=== PATIENT | female | born 1995 | race Caucasian/White ===

== ENCOUNTER → 2016-09-20 | Day surgery (SDC) | payer BC ==
[~2016-09-20] MED LIST: ACETAMINOPHEN/HYDROcodone 325 MG/7.5 MG TAB ONE; BUPIVACAINE HCL PF 0.25% 30 ML VIAL ONE; CALNTAB; IBUP-232 PO; KETOROLAC TROMETHAMINE 30 MG/ML (IVP) VIAL IV PUSH ONE; LACTATED RINGER'S 1,000 ML BAG IV ONE; LACTATED RINGER'S 1000 ML INJ 1,000 ML ONE; MEPERIDINE HCL 25 MG/ML VIAL ONE; MIDAZOLAM HCL 2 MG/2 ML VIAL ONE; ONDANSETRON HCL 4 MG/2 ML VIAL IV PUSH ONE; PROPOFOL 200 MG/20 ML AMP IV ONE; TYLE3 PO; Z.0.NO CURRENT MEDS; ceFAZolin INJ 1,000 MG VIAL ONE
--- NOTE | 2016-09-20 17:53 | MP ---
cc: JAH IRVIN DATE OF SURGERY 09/20/16 PREOPERATIVE DIAGNOSIS Right ovarian dermoid cyst. PROCEDURE Laparoscopic ovarian cystectomy, removal of dermoid cyst, incidental ablation of pelvic endometriosis minimal stage POSTOPERATIVE DIAGNOSIS Laparoscopic ovarian cystectomy, removal of dermoid cyst, incidental ablation of pelvic endometriosis minimal stage SURGEON Renay Irvin MD ANESTHESIA General endotracheal intubation ESTIMATED BLOOD LOSS None. DRAINS None OPERATIVE FINDINGS The patient had a 4 cm solitary dermoid of the right ovary. The patient also had small endometrial implants over the left uterosacral ligament. Otherwise, no other specific abnormalities were present during the endoscopic portion of the exam. INDICATION FOR PROCEDURE The patient had recent which demonstrated a 4-5 cm solid ovarian mass of the right ovary which was persistent consistent with a dermoid. Recommendation was to proceed with laparoscopic exam and potential ovarian cystectomy. The patient received Ancef 1 gram prophylactically. DESCRIPTION OF PROCEDURE The patient was taken to operating room in stable condition underwent general anesthesia with endotracheal intubation. She was carefully positioned with appropriate padding in the dorsal lithotomy position using Trino stirrups on the lower extremities. She was prepped and draped. Sequentials were placed on lower extremities for VTE prophylaxis. Red Timmons catheter was used to drain the bladder of about 25 mL of clear urine. Time-out was conducted, agreed by all present in the room. The patient was then draped sufficiently. Exam revealed a midline uterus and cervix which was secured with a tenaculum using a bivalve retractor. A HUMI manipulator was inserted gently through the cervical os after dilating with the appropriate dilators. Retractor and tenaculum removed. Gloves were changed. The abdomen was examine. There are no scars or deformities. The umbilicus was injected with about 2 mL of 0.25% plain Marcaine allowing a small incision to be made within the umbilical plate passing a 5-mm visible port trocar through into the peritoneal cavity without complication or difficulty. Insufflation of CO2 was accomplished at low pressure. The patient was then placed in steep Trendelenburg positioning evaluating the pelvic anatomy as stated above. Continuation of placement of trocars. A 5 mm trocar was placed on the right lateral flank and then a 10 mm port was placed suprapubically. A combination of monopolar scissors were used to open the ovarian surface to decompress the cyst. The cyst wall was easily teased from the ovary by a combination of simple blunt retraction using the appropriate instrumentation. The ovary was intact. The cyst was easily removed and contained within a EndoCatch bag brought through the 10 mm port site and then sent to pathology for review. There was no spillage of the contents from the cyst into the pelvis. The pelvis was irrigated with copious normal saline. Observation of the right ovary for active bleeding was accomplished with using the suction advance seal delivery system maintainer device. Any active bleeding was cauterized with the monopolar scissors which were set on 30 cutting and 30 coag. After addressing the active bleeding, Jese powder was placed within the ovarian wound site for added hemostasis postoperatively. After control of the bleeding aspect of the ovary, the endometriosis identified on the left uterosacral ligament was ablated using the monopolar scissors with just brief surface cautery without complication. The cul-de-sac was irrigated. All free blood and clot was removed. There was no active bleeding from any operative site. The ovary remained stable and hemostatic in its normal dependent position. Evaluation of the left ovary was normal size and shape and the evaluation in the upper quadrants were normal. At the completion of the case and observation off pressure revealing no active bleeding, the trocars were removed. The 10 mm port site suprapubically was closed at the level of the fascia with interrupted suture of 2-0 Vicryl and then the skin on all port sites were closed with a subcuticular stitch of 4-0 Monocryl. Steri-Strips and Band-Aids were placed over the incision. The HUMI manipulator was removed atraumatically from the cervix and there was no vaginal bleeding. At the completion of the case, the patient was stable. She was taken to the recovery room on room air. MD GEORGIA Napier/ /12:53 PM /5:29 PM
== END | disposition home or self-care (01) ==
LOC: ESDC 06:30
PROVIDERS: ATTEND Obstetrics & Gynecology
DX: D27.0 Benign neoplasm of right ovary (principal)
CPT/HCPCS: 00840; 58662; 88307; J0690; J1885; J2175; J2250; J2405; J3010; J7120; 88304

== ENCOUNTER 2017-04-03 00:03 | Emergency (ER) | payer BC ==
[~2017-04-03] VITALS: Ht 160 cm; Wt 46.3 kg
[~2017-04-03 00:03] MED LIST changes: -ACETAMINOPHEN/HYDROcodone 325 MG/7.5 MG TAB ONE; -BUPIVACAINE HCL PF 0.25% 30 ML VIAL ONE; -KETOROLAC TROMETHAMINE 30 MG/ML (IVP) VIAL IV PUSH ONE; -LACTATED RINGER'S 1,000 ML BAG IV ONE; -LACTATED RINGER'S 1000 ML INJ 1,000 ML ONE; -MEPERIDINE HCL 25 MG/ML VIAL ONE; -MIDAZOLAM HCL 2 MG/2 ML VIAL ONE; -ONDANSETRON HCL 4 MG/2 ML VIAL IV PUSH ONE; -PROPOFOL 200 MG/20 ML AMP IV ONE; -ceFAZolin INJ 1,000 MG VIAL ONE
[2017-04-03 00:08] VITALS: BP 118/66; PULSE 144; RESP 16; TEMP 98.6; O2SAT 98
[2017-04-03 00:10] VITALS: PULSE 132; RESP 16; TEMP 98.9; TEMP 99.2; O2SAT 100
[2017-04-03] MEDS ORDERED: SODIUM CHLOR 0.9% 1000 ML INJ 1,000 ML IV ONE (00:45)
--- NOTE | 2017-04-03 01:01 | PD ---
HPI Chief Complaint: Fever Time Seen by Provider: 00:13 Travel History International Travel<30 days: No Contact w/Intl Traveler<30days: No Traveled to known affect area: No History of Present Illness HPI 21 yo f presents to the Ed with a chief complaint of three day history of neck pain and one day of fever. She recorded her temp at home of a max 103.3 she was concerned because she has her one year old boy at home and didn't want to infect him with anything. About 7-10 days ago she began feeling ill with URI type symptoms and a productive cough. She has a history of Asthma and was using her Albuterol inhaler up to three times a day since developing the cough. She did not seek medical attention for this exacerbation/infection. Currently she denies Headache, Photophobia, Nausea or Vomiting. She has fatigue, some LUQ pain with deep breathing and L shoulder/neck pain. She is presenting today because with the neck pain started she googled her symptoms and was scared at the possibility of meningitis. PFSH Past Medical History Immunizations Current: Yes ?: Not LMP: 03/31/17 Social History Alcohol Use: Yes Tobacco Use: Yes Substance Use: No Allergies-Medications (Allergen,Severity, Reaction): Coded Allergies: No Known Allergies (Verified , 03/30/16) Reported Meds & Prescriptions Reported Meds & Active Scripts Active Amoxicillin 500 Mg Cap 500 Mg PO BID 10 Days Azithromycin 250 Mg Tab 250 Mg PO DIRECTED Take 2 tabs (500 mg) on day 1 then 1 tab daily x 4 days. Albuterol Neb (Albuterol Sulfate) 2.5 Mg/0.5 Ml Neb 2.5 Mg NEB Q6HR NEB Note: The Albuterol Sulfate Inhalation Solution is concentrated and must be diluted. Read complete instructions carefully before using. Ibuprofen 600 Mg Tab 600 Mg PO Q6H PRN Tylenol #3 (Acetaminophen/Codeine Phosphate) 300 Mg/30 Mg Tab 1 Tab PO Q6HPRN FOR PAIN Reported [place] ( Vitamin) 1 Tab Tab No Current Meds (Miscellaneous Medication) Misc Review of Systems Except as stated in HPI: all other systems reviewed are Neg Physical Exam Narrative GENERAL: patient is laying in bed, appears well, no acute distress SKIN: Warm and moist, clammy. HEAD: Atraumatic. Normocephalic. EYES: Pupils equal and round. No scleral icterus. No injection or drainage. no photophobia ENT: No nasal bleeding or discharge. Mucous membranes pink and moist. NECK: Trachea midline. No JVD. negative Kerning and Brudzinski signs. CARDIOVASCULAR: Tachycardia with no murmur or gallops RESPIRATORY: No accessory muscle use. expiratory wheezing and rhonchi on auscultation.On secondary auscultation the patients breath sounds were clear. Breath sounds equal bilaterally. GASTROINTESTINAL: Abdomen soft, non-tender, nondistended. Hepatic and splenic margins not palpable. MUSCULOSKELETAL: Extremities without clubbing, cyanosis, or edema. No obvious deformities. NEUROLOGICAL: Awake and alert. No obvious cranial nerve deficits. Motor grossly within normal limits. Five out of 5 muscle strength in the arms and legs. Normal speech. NO nuchal rigidity. PSYCHIATRIC: Appropriate mood and affect; insight and judgment normal. Data Data Last Documented VS Vital Signs Date Time Temp Pulse Resp B/P (MAP) Pulse Ox O2 Delivery O2 Flow Rate FiO2 04/03/17 04:15 118 16 95/46 (62) 98 04/03/17 03:15 98.5 Room Air Orders Orders Complete Blood Count With Diff (04/03/17 00:43) Comprehensive Metabolic Panel (04/03/17 00:43) Lactic Acid Sepsis Protocol (04/03/17 00:43) Magnesium (Mg) (04/03/17 00:43) Phosphorus (Po4) (04/03/17 00:43) Urinalysis - C+S If Indicated (04/03/17 00:43) Chest, Pa & Lat (04/03/17 00:43) Ecg Monitoring (04/03/17 00:43) Iv Access Insert/Monitor (04/03/17 00:43) Oximetry (04/03/17 00:43) Oxygen Administration (04/03/17 00:43) Sodium Chlor 0.9% 1000 Ml Inj (Ns 1000 M (04/03/17 00:45) Monoscreen (04/03/17 00:43) Influenzae A/B Antigen (04/03/17 00:43) Azithromycin Inj (Zithromax Inj) (04/03/17 01:15) Ceftriaxone Inj (Rocephin Inj) (04/03/17 01:15) Tramadol (Ultram) (04/03/17 02:00) Albuterol-Ipratropium Neb (Duoneb Neb) (04/03/17 03:45) Ed Discharge Order (04/03/17 03:53) Labs Laboratory Tests Test 04/03/17 01:00 White Blood Count 10.4 TH/MM3 Red Blood Count 4.76 MIL/MM3 Hemoglobin 14.4 GM/DL Hematocrit 43.1 % Mean Corpuscular Volume 90.4 FL Mean Corpuscular Hemoglobin 30.3 PG Mean Corpuscular Hemoglobin Concent 33.4 % Red Cell Distribution Width 11.8 % Platelet Count 262 TH/MM3 Mean Platelet Volume 8.5 FL Neutrophils (%) (Auto) 85.6 % Lymphocytes (%) (Auto) 7.9 % Monocytes (%) (Auto) 2.9 % Eosinophils (%) (Auto) 0.6 % Basophils (%) (Auto) 3.0 % Neutrophils # (Auto) 8.9 TH/MM3 Lymphocytes # (Auto) 0.8 TH/MM3 Monocytes # (Auto) 0.3 TH/MM3 Eosinophils # (Auto) 0.1 TH/MM3 Basophils # (Auto) 0.3 TH/MM3 CBC Comment AUTO DIFF Differential Total Cells Counted 100 Neutrophils % (Manual) 76 % Band Neutrophils % 12 % Lymphocytes % 6 % Monocytes % 6 % Neutrophils # (Manual) 9.2 TH/MM3 Differential Comment FINAL DIFF MANUAL Platelet Estimate NORMAL Platelet Morphology Comment NORMAL Urine Color YELLOW Urine Turbidity MOD Urine pH 6.0 Urine Specific [place] 1.031 Urine Protein 30 mg/dL Urine Glucose (UA) NEG mg/dL Urine Ketones 80 OR GREATER mg/dL Urine Occult Blood TRACE Urine Nitrite NEG Urine Bilirubin SMALL Urine Leukocyte Esterase SMALL Urine RBC 0-3 /hpf Urine WBC 3-5 /hpf Urine Squamous Epithelial Cells > 8 /hpf Urine Amorphous Sediment FEW Urine Bacteria FEW /hpf Urine Mucus OCC /lpf Microscopic Urinalysis Comment CULT NOT INDICATED Blood Urea Nitrogen 12 MG/DL Creatinine 0.88 MG/DL Random Glucose 98 MG/DL Total Protein 7.5 GM/DL Albumin 3.7 GM/DL Calcium Level 8.9 MG/DL Phosphorus Level 2.6 MG/DL Magnesium Level 1.8 MG/DL Alkaline Phosphatase 68 U/L Aspartate Amino Transf (AST/SGOT) 11 U/L Alanine Aminotransferase (ALT/SGPT) 12 U/L Total Bilirubin 0.8 MG/DL Sodium Level 136 MEQ/L Potassium Level 3.2 MEQ/L Chloride Level 104 MEQ/L Carbon Dioxide Level 22.4 MEQ/L Anion Gap 10 MEQ/L Estimat Glomerular Filtration Rate 80 ML/MIN Lactic Acid Level 0.9 mmol/L Monoscreen NEG MDM Medical Decision Making Medical Screen Exam Complete: Yes Emergency Medical Condition: Yes Differential Diagnosis Pneumonia, Flu, [place], sepsis, meningitis highly unlikely. Narrative Course Patient roomed in emergency department, only 1 out of 4 Sirs criteria observed in the ER. Lactic acid normal. White blood cell count normal. She does have a pneumonia present on chest x-ray and was given Rocephin and azithromycin. Labs are reassuring. Patient did have a transient episode of hypotension shortly after administration of Ultram for her left chest wall pain. She ambulated to and from the bathroom in no distress and no hypovolemic symptoms. She is appearing much better after fluid resuscitation heart rate is normalizing. Overall improved in the ER. With her transient hypotension and mild tachycardia and discussed with the patient that she is not technically septic certainly could consider staying in the hospital. At this time she would like to go home. She was provided with some nebulizer tubing as her 1- year-old son has a nebulizer machine at home. We'll prescribe antibiotics. Discussed at length returned ED criteria and symptomatic management home. She did ambulated from the emergency department in no distress. She is low risk on curb 65. Diagnosis Primary Impression: Pneumonia Qualified Codes: J18.1 - Lobar pneumonia, unspecified organism Med/Other Pt SpecificInfo: Prescription(s) given Scripts Amoxicillin (Amoxicillin) 500 Mg Cap 500 MG PO BID for Infection for 10 Days, #20 CAP 0 Refills Prov: Ben Root MD 04/03/17 Azithromycin (Azithromycin) 250 Mg Tab 250 MG PO DIRECTED for Infection, #6 TAB 0 Refills Take 2 tabs (500 mg) on day 1 then 1 tab daily x 4 days. Prov: Ben Root MD 04/03/17 Albuterol Neb (Albuterol Neb) 2.5 Mg/0.5 Ml Neb 2.5 MG NEB Q6HR NEB, #1 BOX Note: The Albuterol Sulfate Inhalation Solution is concentrated and must be diluted. Read complete instructions carefully before using. Prov: Ben Root MD 04/03/17 Disposition: 01 DISCHARGE HOME Condition: Stable Ben Root MD Apr 03, 2017 01:01
[2017-04-03 01:15] LABS: BLOOD, URINE TRACE (NEG); GLUCOSE,URINE NEG (NEG); KETONE, URINE 80 OR GREATER mg/dL (NEG); NITRITE,URINE NEG (NEG)
[2017-04-03] MEDS ORDERED: AZITHROMYCIN INJ 500 MG in SODIUM CHLOR 0.9% 250 ML INJ 250 ML IV ONE (01:15)
[2017-04-03] MEDS ORDERED: cefTRIAXone INJ 1,000 MG in SODIUM CHLORIDE 0.9% INJ 100 ML IV ONE (01:15)
[2017-04-03 01:18] LABS: AUTOMATED NEUTROPHIL # 8.9 TH/MM3 (1.8-7.7); BASOPHIL # 0.3 TH/MM3 (0-0.2); EOSINOPHIL # 0.1 TH/MM3 (0-0.4); EOSINOPHIL % 0.6 % (0.0-4.0); HEMATOCRIT 43.1 % (35.0-46.0); LYMPH % 7.9 % (9.0-44.0); LYMPHOCYTE # 0.8 TH/MM3 (1.0-4.8); MEAN CELL VOLUME 90.4 FL (80.0-100.0); MEAN CORPUSCULAR HEMOGLOBIN 30.3 PG (27.0-34.0); MEAN CORPUSCULAR HGB CONC 33.4 % (32.0-36.0); MONO % 2.9 % (0.0-8.0); NEUT % 85.6 % (16.0-70.0); PLATELET COUNT 262 TH/MM3 (150-450); RED BLOOD COUNT 4.76 MIL/MM3 (4.00-5.30); RED CELL DISTRIBUTION WIDTH 11.8 % (11.6-17.2); WHITE BLOOD COUNT 10.4 TH/MM3 (4.0-11.0)
--- NOTE | 2017-04-03 01:20 | RADRPT ---
EXAM DATE/TIME: 04/03/2017 00:48 [facility] COMPARISON: No previous studies available for comparison. INDICATIONS : Fever, cough. MEDICAL HISTORY : None. SURGICAL HISTORY : None. ENCOUNTER: Initial ACUITY: 3 days PAIN SCORE: 0/10 LOCATION: Bilateral chest FINDINGS: There is focal consolidation at the left base silhouetting the left hemidiaphragm. There is also some patchy consolidation seen anteriorly on the lateral view likely in the left lingula. The right lung appears grossly clear. Several osteochondromas are seen in the bony structures. CONCLUSION: 1. Left lower lobe and probable left lingular areas of focal consolidation and pneumonia. 2. Multiple osteochondromas. Luis Vásquez MD on April 03, 2017 at 1:16 Board Certified Radiologist. This report was verified electronically.
[2017-04-03 01:22] LABS: HEMO FLAGS AUTO DIFF
[2017-04-03 01:23] LABS: CHLORIDE 104 MEQ/L (98-107); POTASSIUM 3.2 MEQ/L (3.5-5.1); SODIUM (NA) 136 MEQ/L (136-145)
[2017-04-03 01:26] LABS: ANION GAP 10 MEQ/L (5-15); BICARBONATE 22.4 MEQ/L (21.0-32.0); BLOOD UREA NITROGEN 12 MG/DL (7-18); MAGNESIUM 1.8 MG/DL (1.5-2.5)
[2017-04-03 01:28] LABS: URINE COLOR YELLOW (YELLW/STRAW)
[2017-04-03 01:29] LABS: ALT (GPT) 12 U/L (10-53); AST (GOT) 11 U/L (15-37); MUCUS URINE OCC /lpf (OCC); SQUAMOUS EPITHELIAL CELL URINE > 8 /hpf (0-5)
[2017-04-03 01:30] LABS: GLOMERULAR FILTRATION RATE 80 ML/MIN (>89)
[2017-04-03 01:31] LABS: BACTERIA, URINE FEW /hpf; COMMENT (UR) CULT NOT INDICATED; CULTURE IF INDICATED CULT NOT INDICATED; RBC, URINE 0-3 /hpf (0-3); TOTAL BILIRUBIN ADULT 0.8 MG/DL (0.2-1.0)
[2017-04-03 01:32] LABS: ALKALINE PHOSPHATASE 68 U/L (45-117)
[2017-04-03 01:43] LABS: BANDS 12 % (0-6); NEUTROPHIL # MANUAL DIFF 9.2 TH/MM3 (1.8-7.7); PLATELET ESTIMATE SMEAR NORMAL (NORMAL); PLATELET MORPHOLOGY NORMAL (NORMAL); POLYS (SEG NEUTROPHILS) 76 % (16-70); SCAN/DIFF FINAL DIFF MANUAL; WBC DIFF SAMPLE 100
[2017-04-03] MEDS ORDERED: traMADol HCL 50 MG TAB PO ONE (02:00)
[2017-04-03 02:46] VITALS: BP_SYST 116; BP_SYST 165; BP_DIAS 72; PULSE 112; RESP 20; O2SAT 98
[2017-04-03 03:15] VITALS: BP 82/44; PULSE 114; RESP 16; TEMP 98.5; O2SAT 98
[2017-04-03] MEDS ORDERED: AMOX500C PO (03:31)
[2017-04-03] MEDS ORDERED: AZIT250T3 PO (03:31)
[2017-04-03] MEDS ORDERED: ALBU.5I NEB (03:31)
[2017-04-03] MEDS ORDERED: RESP: ALBUTEROL 2.5 MG/IPRATROPIUM 0.5 MG NEB (SCH) NEB ONE (03:45)
[2017-04-03 04:15] VITALS: BP 95/46
== END 2017-04-03 04:20 | disposition home or self-care (01) ==
LOC: PHED 00:03
DX: J18.1 Lobar pneumonia, unspecified organism (principal); I95.89 Other hypotension; R00.0 Tachycardia, unspecified; R53.83 Other fatigue; R10.12 Left upper quadrant pain; M54.2 Cervicalgia; M25.512 Pain in left shoulder; Z72.0 Tobacco use
CPT/HCPCS: 71020; 80053; 81001; 83605; 83735; 84100; 85007; 85027; 86308; 87804; 94664; 96361; 96365; 96375; 99284; J0456; J0696; J7030; J7050